=== PATIENT | female | born 1950 | race Caucasian/White ===

== ENCOUNTER 2017-01-18 21:33 | Inpatient (IN) | payer MEDICARE, OTHER ==
--- NOTE | ~2017-01-18 | CN ---
Consultation Report [facility] [address] [place]. [address] NAME: JOANNA PULIDO : 54 STATUS : ADM Isatu PAT#: [id number] AGE: 66 ADM/REG DATE : 01/18/17 MR#: [id number] REPORT SERV DATE: 01/19/17 DICTATED BY: NYLA YOUNGER DATE: 01/19/17 REPORT STATUS : Draft TRANSCRIBED BY: MODL DATE: 01/19/17 NEUROLOGY CONSULTATION DATE OF CONSULTATION: 01/19/2017 HOSPITALIST: Hira Lamb M.D. REASON FOR CONSULTATION: TIA. HISTORY OF PRESENT ILLNESS: The patient is a 66-year-old female who had an episode of loss of consciousness yesterday at approximately 3:30 p.m. According to the patient's , the patient was walking out of the bathroom when he heard her fall. He looked up and noticed that the patient had fallen onto the couch. He noticed that her eyes were fixed and looked straight up. He saw that she remained motionless. She was breathing and had a heart beat; however, she would not respond to verbal, visual, or noxious stimuli. She laid there for approximately 20 minutes until emergency services arrived. He did not notice any movement or seizure-like activity. It was reported by the EMS system that she awoke in the back of the ambulance. Once the patient was wheeled into the emergency room, the noted that she was awake; however, she did not speak. She did not speak during her evaluation in the emergency room. Finally, she did start to talk but did not make much sense. He stated that she was very drowsy and would drift in and out of sleep. He mentioned several times that her behavior was "not normal." Today, the patient mentions that she did bite the side of her tongue but denied that she was incontinent of urine or stool. She has never had an "episode" like this before. She states that she has had several strokes in the past. One recent stroke left her weak on the right side. PAST MEDICAL HISTORY: Stroke, diabetes mellitus type 2, hypertension, hyperlipidemia, peripheral vascular disease, chronic lower back pain, hypothyroidism, coronary artery disease, CT, medication noncompliance, and tobacco abuse. PAST SURGICAL HISTORY: Left carotid endarterectomy, appendectomy, cholecystectomy, SHAY with BSO, and . HOME MEDICATIONS: List consists of Lipitor 40 mg at bedtime, Plavix 75 mg daily, Neurontin 300 mg twice a day, Novolin 70/30 insulin, 60 units every morning and 45 units every evening, naproxen 500 mg b.i.d., Percocet 10/325 mg t.i.d. p.r.n., Opana ER 15 mg b.i.d., Senokot two tabs at bedtime, and Synthroid dose unknown but taken daily. ALLERGIES: INCLUDE PENICILLIN, SULFA, DEMEROL, AND CODEINE. SOCIAL HISTORY: The patient lives with her . She has five children. She smokes a half a pack per day, drinks no alcohol, and does not partake in illicit drug use. Consultation Report [address] [place]. [address] NAME: JOANNA PULIDO : 54 STATUS : ADM Isatu PAT#: [id number] AGE: 66 ADM/REG DATE : 01/18/17 MR#: [id number] REPORT SERV DATE: 01/19/17 DICTATED BY: NYLA YOUNGER DATE: 01/19/17 REPORT STATUS : Draft TRANSCRIBED BY: JONATHAN DATE: 01/19/17 FAMILY HISTORY: The patient's mother from diabetes complications and coronary artery disease. Her father from COPD. She had several siblings who have diabetes. REVIEW OF SYSTEMS: For pertinent positives, please see HPI. PHYSICAL EXAMINATION: GENERAL: The patient is a 66-year-old female who stands 5 feet 1 inches tall and weighs 132 pounds. VITAL SIGNS: She is afebrile. Heart rate 63, respiratory rate 11, O2 saturations on room air of 95%, and blood pressure 121/77. NEURO: The patient is drowsy. She will awaken to verbal command, but at times drifts back into sleep. Pupils are 3 mm, PERRLA. Extraocular movements are intact. No facial droop. No cranial nerve deficits. [id number] does reveal ataxia, more so on the left than the right. No tremor. No asterixis. Pronator drift is noticed on the right. Upper extremity strength is a 5/5 on the left and a 4/5 on the right. Upper DTRs 1+ bilaterally. The patient reports diminished sensation on the right compared to the left. In the lower extremities, strength on the left is a 4/5 and on the right is a 3/5. Diminished sensation reported on the right when compared to the left. Patellar reflexes 2+ bilaterally. Downgoing toes on the left and upgoing toes on the right. The patient has sensory extinction on the right. NECK: No carotid bruits, JVD, or thyromegaly. CHEST: Lung sounds are clear. CARDIAC: Regular rate and rhythm. DIAGNOSTIC DATA: MRI of the brain per Radiology report, no acute changes, extensive white matter lesion burden. However, per Neurology, there are three small infarctions, two in the left cerebellar region and one in the left MCA territory. MRI of the head and neck, no high grade stenosis. No aneurysm or cutoff seen. NIH stroke scale is 6. ASSESSMENT/PLAN: 1. Subacute embolic stroke. At this point, aspirin 325 mg will be added to the patient's current Plavix dose. Her Lipitor will be increased to 80 mg at bedtime. PT and OT will be consulted. The patient will be scheduled for evaluation of loop recorder implantation since she did have embolic stroke. Risk factor reduction was discussed with the patient, particularly smoking cessation. 2. 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 The patient will be placed on seizure precautions. She will also be placed on Keppra 500 mg p.o. b.i.d. She will be scheduled for an outpatient EEG early next week and an outpatient Neurology office visit in two to four weeks. Safety precautions were discussed with the patient. She is not allowed to drive in the [facility] until she is seizure-free and on medication for at least six months. She is not allowed to operate dangerous equipment or to bathe and swim without being supervised. Thank you again for including us in consultation. We will continue to follow with you. Consultation Report [address] [place]. [address] NAME: JOANNA PULIDO : 54 STATUS : ADM Isatu PAT#: [id number] AGE: 66 ADM/REG DATE : 01/18/17 MR#: [id number] REPORT SERV DATE: 01/19/17 DICTATED BY: NYLA YOUNGER DATE: 03/24/17 REPORT STATUS : Draft TRANSCRIBED BY: MODL DATE: 01/19/17 LLJ/MODL Nyla Younger, [facility] / [id number] CC: DO Demarco Mayo M.D. Ryan Scott McNamara, M.D.
--- NOTE | ~2017-01-18 | HP ---
History And Physical [facility] [address] [place]. [address] NAME: JOANNA PULIDO : 54 STATUS : ADM Isatu PAT#: [id number] AGE: 66 ADM/REG DATE : 01/18/17 MR#: [id number] REPORT SERV DATE: 01/18/17 DICTATED BY: EVETTE MRUPHY DATE: 01/18/17 REPORT STATUS : Draft TRANSCRIBED BY: MODSharon DATE: 01/18/17 DATE OF ADMISSION: 01/18/2017 POINT OF ENTRY: [facility] Emergency Department. CHIEF COMPLAINT: Altered mental status and aphasia. HISTORY OF PRESENT ILLNESS: Ms. Pulido is a 66-year-old female with a history of prior cerebrovascular accident as well as insulin-dependent diabetes mellitus type 2, hypertension, hyperlipidemia, and peripheral vascular disease, who presents to the emergency department today with the acute onset of altered mental status and aphasia. The patient states that earlier this afternoon, she was walking out of the bathroom at her house when she lost all memory and recollection. She states that she has complete loss of recollection of any events that occurred up until she regained memory here in the emergency department. Her who is at bedside states that upon walking out of the bathroom, she stumbled and he helped her to the couch. He noted that she was unresponsive and not speaking and prompting their presentation to the emergency department. He denies any facial droop, dysarthria, or focal areas of weakness. Per report by the ER physician, when she first arrived in the emergency department, the patient was completely aphasic, but was awake and alert. Blood pressure initially was 218/90. No medications were given for her blood pressure and it started to improve on its own. With improvement in the patient's blood pressure, the patient started to speak with no evidence of any dysarthria, expressive or receptive aphasia. Initial evaluation in the emergency department is notable for a CT scan of the brain that was unremarkable. Does show evidence of old cerebrovascular accident. Labs unremarkable as was her EKG. She was subsequently admitted to the Hospitalist Service for further evaluation and management. REVIEW OF SYSTEMS: Comprehensive review of systems otherwise negative unless listed in history of present illness. The patient states she has a history of hypertension, but is not on any blood pressure medication. She cannot tell me why she is not on any medications. PREVIOUS MEDICAL HISTORY: 1. Insulin-dependent diabetes mellitus type 2. 2. Hypertension. 3. Hyperlipidemia. History And Physical [address] [address] NAME: JOANNA PULIDO : 54 STATUS : ADM Isatu PAT#: [id number] AGE: 66 ADM/REG DATE : 01/18/17 MR#: [id number] REPORT SERV DATE: 01/18/17 DICTATED BY: EVETTE MURPHY DATE: 01/18/17 REPORT STATUS : Draft TRANSCRIBED BY: JONATHAN DATE: 01/18/17 4. Peripheral vascular disease status post left carotid endarterectomy. 5. Chronic lower back pain, on chronic narcotics. 6. Hypothyroidism. 7. Coronary artery disease with reported history of myocardial infarction. 8. History of prior cerebrovascular accidents. 9. Medication noncompliance. 10.Active tobacco abuse. SURGICAL HISTORY: 1. Appendectomy. 2. Cholecystectomy. 3. Abdominal hysterectomy with bilateral salpingo-oophorectomy. 4. Left carotid endarterectomy. 5. . ALLERGIES: PENICILLIN, CODEINE, DEMEROL, AND SULFA. HOME MEDICATIONS: 1. Atorvastatin 40 mg q.h.s. 2. Plavix 75 mg daily. 3. Gabapentin 300 mg b.i.d. 4. Insulin 70/30, 60 units in the morning. 5. Insulin 70/30, 45 units in the evening. 6. Naproxen 500 mg b.i.d. 7. Percocet 10/325 one tablet t.i.d. 8. Opana ER 15 mg b.i.d. 9. Senokot two tablets q.h.s. 10.Synthroid, dose unknown. SOCIAL HISTORY: She does smoke about a half pack per day. Denies any illicits. Denies any alcohol. FAMILY MEDICAL HISTORY: Mother with diabetes and coronary artery disease. Father with COPD. Siblings with diabetes. LABORATORY DATA AND IMAGIN. White count is 11.7, hemoglobin is 14.1, hematocrit is 42.6, platelet count is 259. INR 1.0. 2. Sodium is 142, potassium 4.2, chloride 106, carbon dioxide 28, BUN 12, creatinine 0.91, glucose is 143, calcium is 9.4. 3. CT scan of the brain shows no acute intracranial abnormality, did show some old cerebrovascular accidents in the right escalera radiata as well as left internal capsule of the basal ganglia. 4. EKG per my review shows normal sinus rhythm with no evidence of any acute ischemia or infarction, did show some very mild inferolateral T-wave flattening. PHYSICAL EXAMINATION: History And Physical [address] [place]. [address] NAME: JOANNA PULIDO : 54 STATUS : ADM Isatu PAT#: [id number] AGE: 66 ADM/REG DATE : 01/18/17 MR#: [id number] REPORT SERV DATE: 01/18/17 DICTATED BY: EVETTE MURPHY DATE: 01/18/17 REPORT STATUS : Draft TRANSCRIBED BY: JONATHAN DATE: 01/18/17 VITAL SIGNS: Temperature 98.3 degrees Fahrenheit, pulse is 83, respirations 28, saturating 98% on room air, blood pressure initially was 218/90; on recheck, it is now 176/70 with pulse in the 60s. GENERAL: The patient is awake, alert, in no acute distress, resting comfortably in bed. She is a well-developed and well-nourished, elderly female. is at bedside. HEENT: Atraumatic and normocephalic. Moist mucous membranes. Pupils are equal, round, reactive to light and accommodation. Extraocular eye movements are intact. No scleral icterus. NECK: No jugular venous distention. No carotid bruits. CARDIAC: Regular rate and rhythm. No murmurs, rubs, or gallops. Normal S1 and S2. LUNGS: Clear to auscultation bilaterally. No wheezes, rhonchi, or crackles. ABDOMEN: Soft, nontender, nondistended with good bowel sounds. No rebound, guarding, or rigidity. EXTREMITIES: Warm and well perfused. No cyanosis, clubbing, or edema. SKIN: Warm and dry. PSYCH: Affect is appropriate. NEURO: Alert and oriented to person only. She is unable to tell me her location or date, month, or year. She was very reluctant to tell me her birthday, but it was correct. Cranial nerves II through XII are grossly intact. Speech is normal. Gait was not assessed. Strength is 5/5 in bilateral upper and lower extremities. ASSESSMENT: Ms. Pulido is a 66-year-old female, who presents with reports of aphasia and altered mental status in the setting of severely elevated blood pressure concerning for hypertensive encephalopathy secondary to malignant hypertension versus possible transient ischemic attack. PROBLEM LIST: 1. Encephalopathy. 2. Expressive aphasia. 3. Transient ischemic attack versus malignant hypertension and hypertensive encephalopathy. 4. Medication noncompliance. 5. Insulin-dependent diabetes mellitus type 2. 6. Active tobacco abuse. PLAN: 1. Possible TIA versus malignant hypertension, unclear which is the source of the patient's symptoms. She is now awake, alert, and talking without evidence of aphasia or dysarthria. We will admit the patient to the Hospitalist Service. Check MRI and MRA as well as echocardiogram. We will obtain neurology consultation for assistance. For the patient's elevated blood pressure, we will place the patient on some low-dose lisinopril with IV hydralazine p.r.n. for elevated blood pressures. Place the patient on aspirin as well as her home Plavix and statin. 2. Encephalopathy, unclear etiology at this time, likely secondary to her uncontrolled blood pressures; however, we will check a urinalysis, thyroid function studies, urine drug screen. 3. Malignant hypertension. The patient states a history of hypertension, but cannot tell History And Physical [address] [address] NAME: JOANNA PULIDO : 54 STATUS : ADM Isatu PAT#: [id number] AGE: 66 ADM/REG DATE : 01/18/17 MR#: [id number] REPORT SERV DATE: 01/18/17 DICTATED BY: EVETTE MURPHY DATE: 01/18/17 REPORT STATUS : Draft TRANSCRIBED BY: JONATHAN DATE: 01/18/17 me why she is not on any blood pressure medications at this time. EKG is nonischemic. We will check a set of cardiac enzymes as well as chest x-ray. Place the patient on low-dose lisinopril as well as IV hydralazine p.r.n. 4. Insulin-dependent diabetes mellitus type 2. Continue the patient's home 70/30. Place the patient on level 1 sliding scale in addition to that. Checking hemoglobin A1c. 5. DVT prophylaxis. Lovenox subcutaneously. CODE STATUS: The patient wished to be full code. JCB/JONATHAN Evette Murphy MD / [id number] CC: Bharti Colón M.D.
--- NOTE | ~2017-01-18 | DS ---
Discharge Summary [facility] [address] [place]. [address] NAME: JOANNA PULIDO : 54 STATUS : DIS IN PAT#: [id number] AGE: 66 ADM/REG DATE : 01/19/17 MR#: [id number] REPORT SERV DATE: 01/22/17 DICTATED BY: DELFINO BOB DATE: 01/21/17 REPORT STATUS : Draft TRANSCRIBED BY: MODL DATE: 01/21/17 ADMISSION DATE: 01/19/2017 DISCHARGE DATE: 01/21/2017 HOSPITAL COURSE: A 66-year-old female with known history of stroke, insulin- dependent diabetes, hypertension, hyperlipidemia, and PAD. Known additional history of hyperlipidemia, PAD, left carotid endarterectomy, chronic low back pain, chronic narcotics, hypothyroidism, and medication noncompliance, who has a past history of active tobacco use. Surgical history of appendectomy, cholecystectomy, abdominal hysterectomy, bilateral salpingo-oophorectomy, left carotid endarterectomy, and as stated . The patient comes in with altered mental status and encephalopathy thought to have been in addition to aphasia. Initially, the patient was walking in the bathroom, stumbled, and then was helped with the couch. Initially, she was unresponsive, not speaking on prompting on presentation to the ER. In the ER, there was no facial droop, no dysarthria, and no focal area of weakness. The patient had hypertensive urgency at that time, was seen by Neurology, and they were convinced the patient had secondary seizure due to a subacute embolic stroke. As a result, aspirin was added to the Plavix, Lipitor was maximized to 80, Keppra was initiated at 500 b.i.d. On MRI, there was not any radiographic new stroke. Clinical impression per Neurology was such that she had a subacute embolic stroke. MRI showed fairly extensive deep white matter changes certainly consistent with small-vessel ischemic changes, and lesion burden, moderate to marked. No acute infarct or bleed. No secondary bleeding complication. As a result, we will like EP to evaluate as an outpatient for possible loop recorder. Had an MRA of the neck that shows mild atherosclerosis. No significant flow- limiting stenosis. MRA of the head, minor atherosclerotic changes to the left [employer] P[employer]GER. No high grade aneurysm or stenosis. I did a CT of abdomen and pelvis, she had some nausea and vomiting. No acute pathology noted. Did have nonobstructive right nephrolithiasis. Consider possible outpatient Beelith therapy to reduce any risk of nephrolithiasis recurrence. The patient cannot drive per Neurology, needs to follow up with Neurology, follow up with EP as prescribed. DISCHARGE MEDICATIONS: Include aspirin, enteric coated, 81 p.o. daily as well as Lipitor 80 p.o. daily, as well as Plavix 75 p.o. daily, as well as gabapentin 300 p.o. b.i.d., as well as NovoLog sliding scale, see order set. I reduced her insulin as she is much more euglycemic here with a likely better compliant diet here at the hospital which will be Novolin 70 units/30 R of 30 units subcu at h.s. and then 40 units subcu a.m. Consider possible regular or NovoLog before meals as well; we will defer to PCP. Imdur 30 p.o. daily, lactulose 30 mL p.o. t.i.d. She has some mild hyperammonemia. Keppra 500 p.o. b.i.d., lisinopril 20 p.o. daily, nicotine transdermal patch, 14-mg patch daily. Opana home dose, Synthroid home dose, Percocet half dose as at home, we will not prescribe, she has it at home. Follow up with PCP in 2 weeks. Follow up Neurology as prescribed. Followup EP as well for Discharge Summary [address] [address] NAME: JOANNA PULIDO : 54 STATUS : DIS IN PAT#: [id number] AGE: 66 ADM/REG DATE : 01/19/17 MR#: [id number] REPORT SERV DATE: 01/22/17 DICTATED BY: DELFINO BOB DATE: 01/21/17 REPORT STATUS : Draft TRANSCRIBED BY: MODSharon DATE: 01/21/17 loop recorder as prescribed. She has some SIRS criteria. Her leukocytosis improved on Levaquin and Flagyl. I cannot find a source of infection, and as a result, we will discontinue her antibiotics at this time. We will discharge home with home health or home PT or facility whichever PT recognizes appropriate. She does have some mild right upper extremity weakness, it seems to be a residual from prior left-sided stroke. I would consider the patient possibly to have an ankle-brachial index as an outpatient given her history of PAD. I would like to note, the patient's consults were Neurology, procedures were above, and all imaging. Discharge diagnoses, hypertensive urgency, subacute stroke, secondary seizure, history of PAD, SIRS, and nausea and vomiting as a result. All questions were answered, it took over 30 minutes to do. JAH/JONATHAN Delfino Bob DO / [id number] CC: DO Demarco Mayo M.D.
[2017-01-18 20:16] LABS: BASOPHILS 0.3 %; BASOPHILS ABSOLUTE 0.04 10/3/uL (0.0-0.16); EOSINOPHILS 1.4 %; EOSINOPHILS ABSOLUTE 0.16 10/3/uL (0.0-0.53); IMMATURE GRANULOCYTES 0.3 %; IMMATURE GRANULOCYTES ABSOLUTE 0.04 10/3/uL (0.0-0.11); LYMPHOCYTES 24.5 %; LYMPHOCYTES ABSOLUTE 2.87 10/3/uL (0.67-4.30); MEAN CORPUS HGB CONC 33.1 g/dL (32.0-36.0); MEAN CORPUSCULAR HEMOGLOB 31.5 pg (26.0-34.0); MEAN CORPUSCULAR VOLUME 95.1 fL (80-100); MEAN PLATELET VOLUME 10.1 fL (9.2-13.0); MONOCYTES 5.6 %; MONOCYTES ABSOLUTE 0.66 10/3/uL (0.21-1.20); NEUTROPHILS 67.9 %; NEUTROPHILS ABSOLUTE 7.95 10/3/uL (2.02-8.40); PLATELET COUNT 259 10/3/uL (150-400); RBC DISTRIBUTION WIDTH 12.5 % (12.0-16.0)
[2017-01-18 20:17] LABS: ER CBC TAT 0 Hrs 07 Mins; HEMATOCRIT 42.6 % (36.0-48.0); HEMOGLOBIN 14.1 g/dL (12.0-16.0); MANUAL DIFF NO %; RED CELL COUNT 4.48 10/6/uL (4.0-5.6); WHITE BLOOD CELLS 11.7 10/3/uL (4.5-10.5)
[2017-01-18 20:26] LABS: PARTIAL THROMBO TIME 24.8 SEC (22.5-37.2); PROTIME (NOT ORD) 13.2 SEC (12.0-14.5)
[2017-01-18 20:31] LABS: BUN (BLOOD UREA NITROGEN) 12 MG/DL (6-23); CALCIUM, SERUM 9.4 MG/DL (8.5-10.4); CHLORIDE, SERUM 106 MMOL/L (96-112); CO2 (CARBON DIOXIDE) 28 MMOL/L (24-34); CREATININE 0.94 MG/DL (0.55-1.02); GFR AFRICAN AMERICAN 74 ML/MIN (>=60); GFR NON AFRICAN AMERICAN 64 ML/MIN (>=60); GLUCOSE, SERUM 143 MG/DL (60-99); POTASSIUM, SERUM 4.2 MMOL/L (3.5-5.3); SODIUM, SERUM 142 MMOL/L (135-148)
[~2017-01-18 21:33] MED LIST: AMB5 PO; AMIT100 PO; D.O.S.100 MG PO; DSS PO; INSNOV7030 SC; LEVOTHYROXIN75 MCG PO; LIPITOR20 PO; MOMUD PO; OXYCOD PO; PLAVIX PO; SENTAB PO; SEROQUEL1C PO; X5 PO; ZESTRIL10 MG PO
[2017-01-18] MEDS ORDERED: PLAVIX PO (21:49)
[2017-01-18] MEDS ORDERED: NAP500 PO (21:50)
[2017-01-18] MEDS ORDERED: NEUR300 PO (21:50)
[2017-01-18] MEDS ORDERED: LIPITOR40 PO (21:51)
[2017-01-18] MEDS ORDERED: SYNTHROID PO (21:51)
[2017-01-18] MEDS ORDERED: INSNOV7030 SC ×2 (21:52)
[2017-01-18] MEDS ORDERED: PERCOCET 10/3251 TAB PO (21:54)
[2017-01-18] MEDS ORDERED: OPANA ER15 MG PO (21:55)
[2017-01-18] MEDS ORDERED: SENTAB PO (21:56)
[2017-01-19 05:57] LABS: CPK 134 U/L (0-200); TROPONIN I <0.02 NG/ML (<0.05)
[2017-01-19 05:59] LABS: CK-MB 2.8 NG/ML
[2017-01-19 13:20] LABS: CK-MB 2.7 NG/ML; CPK 122 U/L (0-200); TROPONIN I <0.02 NG/ML (<0.05)
[2017-01-19 22:06] LABS: CK-MB 2.6 NG/ML; CPK 100 U/L (0-200); FREE T4 0.98 NG/DL (0.76-1.46); TROPONIN I <0.02 NG/ML (<0.05)
[2017-01-20 03:50] LABS: BASOPHILS 0.3 %; BASOPHILS ABSOLUTE 0.03 10/3/uL (0.0-0.16); EOSINOPHILS 1.7 %; EOSINOPHILS ABSOLUTE 0.16 10/3/uL (0.0-0.53); HEMATOCRIT 34.6 % (36.0-48.0); HEMOGLOBIN 11.3 g/dL (12.0-16.0); IMMATURE GRANULOCYTES 0.1 %; IMMATURE GRANULOCYTES ABSOLUTE 0.01 10/3/uL (0.0-0.11); LYMPHOCYTES 22.7 %; LYMPHOCYTES ABSOLUTE 2.15 10/3/uL (0.67-4.30); MANUAL DIFF NO %; MEAN CORPUS HGB CONC 32.7 g/dL (32.0-36.0); MEAN CORPUSCULAR HEMOGLOB 31.6 pg (26.0-34.0); MEAN CORPUSCULAR VOLUME 96.6 fL (80-100); MEAN PLATELET VOLUME 9.7 fL (9.2-13.0); MONOCYTES 5.6 %; MONOCYTES ABSOLUTE 0.53 10/3/uL (0.21-1.20); NEUTROPHILS 69.6 %; PLATELET COUNT 232 10/3/uL (150-400); RBC DISTRIBUTION WIDTH 12.6 % (12.0-16.0); RED CELL COUNT 3.58 10/6/uL (4.0-5.6); WHITE BLOOD CELLS 9.5 10/3/uL (4.5-10.5)
[2017-01-20 04:08] LABS: BUN (BLOOD UREA NITROGEN) 17 MG/DL (6-23); CALCIUM, SERUM 8.8 MG/DL (8.5-10.4); CHLORIDE, SERUM 110 MMOL/L (96-112); CO2 (CARBON DIOXIDE) 30 MMOL/L (24-34); CREATININE 1.12 MG/DL (0.55-1.02); GFR AFRICAN AMERICAN 60 ML/MIN (>=60); GFR NON AFRICAN AMERICAN 52 ML/MIN (>=60); GLUCOSE, SERUM 80 MG/DL (60-99); PHOSPHORUS, SERUM 3.2 MG/DL (2.5-4.5); POTASSIUM, SERUM 3.5 MMOL/L (3.5-5.3); SODIUM, SERUM 147 MMOL/L (135-148)
[2017-01-20 21:35] LABS: ASCORBIC ACID (UR NOT ORDER) NEG (NEG); BILIRUBIN, URINE NEGATIVE (NEG); KETONE, URINE TRACE MG/DL (NEG); LEUKOCYTE ESTERASE(NOT OR SMALL (NEG); WBC (NOT ORDERED) (RFLEX) 1 (0-5)
[2017-01-21 06:01] LABS: BASOPHILS 0.6 %; BASOPHILS ABSOLUTE 0.05 10/3/uL (0.0-0.16); EOSINOPHILS 2.1 %; EOSINOPHILS ABSOLUTE 0.18 10/3/uL (0.0-0.53); HEMATOCRIT 32.6 % (36.0-48.0); IMMATURE GRANULOCYTES 0.1 %; IMMATURE GRANULOCYTES ABSOLUTE 0.01 10/3/uL (0.0-0.11); LYMPHOCYTES 29.3 %; LYMPHOCYTES ABSOLUTE 2.52 10/3/uL (0.67-4.30); MEAN CORPUS HGB CONC 33.7 g/dL (32.0-36.0); MEAN CORPUSCULAR VOLUME 94.8 fL (80-100); MONOCYTES 8.1 %; NEUTROPHILS 59.8 %; NEUTROPHILS ABSOLUTE 5.13 10/3/uL (2.02-8.40); PLATELET COUNT 216 10/3/uL (150-400); RED CELL COUNT 3.44 10/6/uL (4.0-5.6); WHITE BLOOD CELLS 8.6 10/3/uL (4.5-10.5)
[2017-01-21 06:02] LABS: MANUAL DIFF NO %
[2017-01-21 06:14] LABS: BUN (BLOOD UREA NITROGEN) 22 MG/DL (6-23); CALCIUM, SERUM 8.5 MG/DL (8.5-10.4); CHLORIDE, SERUM 111 MMOL/L (96-112); CO2 (CARBON DIOXIDE) 29 MMOL/L (24-34); CREATININE 1.14 MG/DL (0.55-1.02); GFR AFRICAN AMERICAN 59 ML/MIN (>=60); GFR NON AFRICAN AMERICAN 51 ML/MIN (>=60); GLUCOSE, SERUM 76 MG/DL (60-99); PHOSPHORUS, SERUM 3.2 MG/DL (2.5-4.5); POTASSIUM, SERUM 3.6 MMOL/L (3.5-5.3); SODIUM, SERUM 147 MMOL/L (135-148)
[2017-01-21] MEDS ORDERED: CONSTULOSE PO (13:00)
[2017-01-21] MEDS ORDERED: KEPPRA500 PO (13:01)
[2017-01-21] MEDS ORDERED: PRIN20 PO (13:01)
[2017-01-21] MEDS ORDERED: HABIT14 TOP (13:02)
[2017-01-21] MEDS ORDERED: ASAB PO (13:03)
[2017-01-21] MEDS ORDERED: LIPITOR80 MG PO (13:04)
[2017-01-21] MEDS ORDERED: INSNOV7030 SC ×2 (13:06→13:08)
[2017-01-21] MEDS ORDERED: IMDUR30 PO (13:09)
[2017-06-12] MEDS ORDERED: NORCO1 TAB PO (22:06)
[2017-06-12] MEDS ORDERED: INSNOV7030 SC (22:07)
[2017-06-12] MEDS ORDERED: OPANA ER15 MG PO (22:07)
[2017-06-12] MEDS ORDERED: LIPITOR40 PO (22:07)
[2017-06-12] MEDS ORDERED: SYN88 PO (22:08)
[2017-06-12] MEDS ORDERED: PLAVIX PO (22:08)
[2017-06-12] MEDS ORDERED: ASAB PO (22:08)
[2017-06-12] MEDS ORDERED: NEUR300 PO (22:08)
[2017-06-12] MEDS ORDERED: PRIN20 PO (22:09)
== END 2017-01-21 15:12 | disposition home or self-care (01) | DRG 65 ==
LOC: ER 21:33 → CDU1 22:39
PROVIDERS: Emergency Medicine; Internal Medicine
DX: I63.40 Cerebral infarction due to embolism of unspecified cerebral artery (principal); R65.10 Systemic inflammatory response syndrome (SIRS) of non-infectious origin without acute organ dysfunction; R56.9 Unspecified convulsions; R47.01 Aphasia; I16.0 Hypertensive urgency; I10 Essential (primary) hypertension; E11.9 Type 2 diabetes mellitus without complications; E78.5 Hyperlipidemia, unspecified; I73.9 Peripheral vascular disease, unspecified; F17.210 Nicotine dependence, cigarettes, uncomplicated; I25.10 Atherosclerotic heart disease of native coronary artery without angina pectoris; N20.0 Calculus of kidney; M54.5 Low back pain; E03.9 Hypothyroidism, unspecified; Z86.73 Personal history of transient ischemic attack (TIA), and cerebral infarction without residual deficits; Z79.4 Long term (current) use of insulin; Z88.0 Allergy status to penicillin; Z88.2 Allergy status to sulfonamides; Z88.5 Allergy status to narcotic agent; Z90.49 Acquired absence of other specified parts of digestive tract; Z79.891 Long term (current) use of opiate analgesic; Z91.14 Patient's other noncompliance with medication regimen; Z90.710 Acquired absence of both cervix and uterus; Z83.3 Family history of diabetes mellitus
CPT/HCPCS: 70450; 70544; 70547; 70548; 70551-52; 71010; 74176; 80048; 81001; 82140; 82306; 82550; 82553; 82607; 82746; 82962; 83735; 84100; 84439; 84443; 84484; 85025; 85610; 85730; 87086; 93005; 93306; 97162-GP; 99285; A9270-GY; A9577; G8978-CK-GP; G8979-CI-GP; J0360; J1956; J2405